=== PATIENT | male | born 1940 | race Caucasian/White ===

== ENCOUNTER 2018-09-08 14:44 | Emergency (ER) | payer OTHER ==
[2018-09-08 16:29] LABS: ADD MAN DIFF? NO
[2018-09-08 16:32] LABS: BASOPHILS % 0.4 % (0.0-2.0); EOSINOPHILS % 0.2 % (0.0-7.0); HEMATOCRIT 45.1 % (42.0-52.0); HEMOGLOBIN 14.9 g/dl (14.0-18.0); LYMPHOCYTES # 1.8 10^3/ul (0.8-2.9); LYMPHOCYTES % 18.4 % (15.0-51.0); MEAN CORPUSCULAR HEMOGLOBIN 28.9 pg (29.0-33.0); MEAN CORPUSCULAR VOLUME 87.6 fl (82.0-101.0); MEAN PLATELET VOLUME 10.4 fl (7.4-10.4); MONOCYTE # 0.7 10^3/ul (0.3-0.9); NEUTROPHIL # 7.2 10^3/ul (1.6-7.5); NEUTROPHILS % 73.1 % (39.0-77.0); PLATELET COUNT 235 10^3/UL (140-415); RED BLOOD COUNT 5.15 10^6/ul (4.70-6.10); RED CELL DISTRIBUTION WIDTH 13.6 % (11.5-14.5)
[2018-09-08 16:32] LABS: WHITE BLOOD COUNT 9.8 10^3/ul (4.8-10.8)
[2018-09-08 16:39] LABS: ANION GAP 13 (5-13); BLOOD UREA NITROGEN 11 mg/dl (7-20); CALCIUM 9.7 mg/dl (8.4-10.2); CARBON DIOXIDE 22 mmol/L (21-31); CHLORIDE 104 mmol/L (97-110); CREATININE 1.05 mg/dl (0.61-1.24); GLUCOSE 128 mg/dl (70-220); POTASSIUM 3.9 mmol/L (3.5-5.1); SODIUM 139 mmol/L (135-144)
[2018-09-08] MEDS: ASPIRIN 325 MG TAB PO (16:44)
[2018-09-08] MEDS: NITROGLYCERIN (SL) 0.4 MG TAB SL (16:57)
[2018-09-08 17:10] LABS: TROPONIN-I 0.656 ng/ml (0.000-0.120)
[2018-09-08] MEDS ORDERED: ASPIRIN 325 MG TAB PO (17:11)
[2018-09-08] MEDS: CLOPIDOGREL 300 MG TAB PO (17:20)
[2018-09-08] MEDS: HEPARIN 1000 UNITS/ML 10 ML INJ IV (17:23)
[2018-09-08] MEDS: HEPARIN 25000 UNITS/250 ML 250 ML IV (17:30)
== END 2018-09-08 17:48 | disposition short-term general hospital (02) ==
LOC: E/R 17:48
DX: I10 Essential (primary) hypertension (principal)
CPT/HCPCS: 36415; 71045; 80048; 84484; 85025; 93005; 96374; 99285-25